=== PATIENT | male | born 1935 | race African-American/Black ===

== ENCOUNTER 2019-01-03 19:32 | Emergency (ER) | payer OTHER ==
[~2019-01-03] VITALS: Ht 172.7 cm; Wt 69.5 kg
[2019-01-03 20:10] VITALS: BP 156/65
== END 2019-01-03 21:05 | disposition home or self-care (01) ==
LOC: ER 19:46
DX: J40 Bronchitis, not specified as acute or chronic (principal); E11.9 Type 2 diabetes mellitus without complications; Z95.818 Presence of other cardiac implants and grafts
CPT/HCPCS: 71045; 99283; A4606